=== PATIENT | female | born 1990 | race Caucasian/White ===

== ENCOUNTER → 2016-08-14 | Outpatient (CLI) | payer OTHER ==
[~2016-08-14] MED LIST: AUGMENTIN 875875 MG PO; IBUPROFEN 600600 M1 PO; WELLBUTRIN 75 M75 M1 PO
--- NOTE | ~2016-08-14 | 2DMMODE ---
[facility] [address] [place] [address] 2 D/M-MODE ECHOCARDIOGRAM Name: HAASROCKY Room #: REG [facility]#: [id number] Admission: 08/14/16 Attend Phys: Dat Landrum Discharge: Date of : 88 Date of Service: 08/14/16 1716 Report #: [id number] THIS REPORT FOR: //name// APPROVED REPORT Study performed: 08/14/2016 15:09:29 EXAM: Comprehensive 2D, Doppler, and color-flow Echocardiogram Patient Location: Echo lab Status: routine Other Information Study Quality: Good Indications Palpitations 2D Dimensions RVDd: 32.96 mm LVEF(%): 68.95 (>50%) IVSd: 7.69 (7-11mm) LVOT Diam: 21.69 (18-24mm) LVDd: 49.12 mm PWd: 9.09 (7-11mm) Ascending Ao: 30.57 (22-36mm) LVDs: 30.08 (25-40mm) Aortic Root: 29.09 mm Beach's LVEF: 68.95 % Volumes Left Atrial Volume (Systole) Single Plane 4CH: 18.21 mL Single Plane 2CH: 22.20 mL LA ESV Index: 12.00 mL/m2 Aortic Valve AoV Peak Neo.: 1.17 m/s AO Peak Gr.: 5.49 mmHg LVOT Max P.93 mmHg LVOT Max V: 0.99 m/s PRABHAKAR Vmax: 3.12 cm2 Mitral Valve IVRT: 106.11 ms Pulmonary Valve PV Peak Neo.: 0.97 m/s PV Peak Gr.: 3.79 mmHg Pulmonary Vein [facility] [employer] [address] 2 D/M-MODE ECHOCARDIOGRAM Name: ROCKY HAAS Room #: [facility]#: [id number] Admission: 08/14/16 Attend Phys: Dat Landrum Discharge: Date of : 88 Date of Service: 08/14/16 1716 Report #: [id number] P Vein S: 0.66 m/s P Vein D: 0.75 m/s P Vein S/D Ratio: 0.88 Tricuspid Valve TR Peak Neo.: 2.21 m/s RAP Estimate: 5.00 mmHg TR Peak Gr.: 19.52 mmHg PA Pressure: 25.00 mmHg Left Ventricle The left ventricle is normal size. There is normal LV segmental wall motion. There is normal left ventricular wall thickness. The left ventricular systolic function is normal. The left ventricular ejection fraction is within the normal range. LVEF is 55-60%. The left ventricular diastolic function is normal. Right Ventricle The right ventricle is normal size. The right ventricular systolic function is normal. Atria The left atrium size is normal. The right atrium size is normal. Aortic Valve The aortic valve is normal in structure. No aortic regurgitation is present. There is no aortic valvular stenosis. Mitral Valve The mitral valve is normal in structure. Trace mitral regurgitation. No evidence of mitral valve stenosis. Tricuspid Valve The tricuspid valve is normal in structure. There is trace tricuspid regurgitation. The right atrial pressure is estimated at 5 mmHg. There is no pulmonary hypertension with an estimated PAP of 28 mmHg. Pulmonic Valve The pulmonary valve is normal in structure. There is no pulmonic valvular regurgitation. Great Vessels The aortic root is normal in size. The ascending aorta is normal in size. IVC is normal in size and collapses >50% with inspiration. [facility] [address] [place] [address] 2 D/M-MODE ECHOCARDIOGRAM Name: ROCKY HAAS Room #: REG Dov#: [id number] Admission: 08/14/16 [facility]: Date of : 88 Date of Service: 08/14/16 1716 Report #: [id number] Pericardium There is no pericardial effusion. <Conclusion> The left ventricle is normal size. The left ventricular systolic function is normal. The right ventricle is normal size. The left atrium size is normal. The right atrium size is normal. The aortic valve is normal in structure. Trace mitral regurgitation. There is trace tricuspid regurgitation. The right atrial pressure is estimated at 5 mmHg. There is no pulmonary hypertension with an estimated PAP of 28 mmHg. <ELECTRONICALLY SIGNED> By: Saeed Gongora MD 08/14/161715 15 15 Saeed Gongora MD /INF
== END ==
LOC: CV 14:04
DX: I34.0 Nonrheumatic mitral (valve) insufficiency (principal); I07.1 Rheumatic tricuspid insufficiency; R00.2 Palpitations